=== PATIENT | female | born 1965 | race Caucasian/White ===

== ENCOUNTER 2016-09-12 09:00 | Emergency (ER) | payer MEDICAID, OTHER ==
[~2016-09-12] VITALS: Ht 160 cm; Wt 90.0 kg
[~2016-09-12 09:00] MED LIST: CITA20 PO; CYCL-36 PO; FLUP125P INJ; NAPR500 PO
[2016-09-12 09:04] VITALS: BP 159/87; PULSE 118; RESP 20; TEMP 98.2; O2SAT 98
[2016-09-12] MEDS ORDERED: DIAZEPAM 5 MG TAB PO ONE (09:15)
[2016-09-12] MEDS ORDERED: traMADol HCL 50 MG TAB PO ONE (09:15)
--- NOTE | 2016-09-12 09:23 | PD ---
HPI Chief Complaint: Musculoskeletal Complaint Time Seen by Provider: 09:09 Travel History International Travel<30 days: No Contact w/Intl Traveler<30days: No Traveled to known affect area: No History of Present Illness HPI Patient is a 51-year-old female who presents to emergency with complaints of right-sided hip and right-sided ankle pain. Patient reports that she was walking yesterday, reports that she missed a curb and tripped, reports that when she tripped, she twisted her right ankle and now has pain to her right hip as well as her right ankle. She denies any fall time injury, reports that she has been ambulating without any difficulty. Reports that she has pins and needles to her ankle, reports that she has history of low back problems in the past, which that now she feels some sciatic pain from her buttocks to her right posterior thigh. Patient denies saddle anesthesia, denies any gait instability. Patient with no incontinence of urine or bowel PFSH Past Medical History Asthma: No Autoimmune Disease: No Bipolar Disorder: Yes Anxiety: Yes Depression: Yes Cancer: Yes (SKIN CANCER REMOVED) Cardiovascular Problems: No High Cholesterol: No COPD: No Diabetes: No Diminished Hearing: No Endocrine: No Hypertension: No Immune Disorder: No Musculoskeletal: Yes Neurologic: No Psychiatric: Yes Respiratory: No Immunizations Current: Yes Schizophrenia: Yes Sleep Apnea: No Thyroid Disease: No PNEUMOCCOCAL Vaccine (Year): 2007 Menopausal: No : 4 Para: 4 Tubal Ligation: Yes (1998) Past Surgical History Abdominal Surgery: No Cardiac Surgery: No Ear Surgery: No Endocrine Surgery: No Eye Surgery: No Genitourinary Surgery: No Gynecologic Surgery: No Neurologic Surgery: No Oral Surgery: No Thoracic Surgery: No Other Surgery: Yes (hx lipoma on neck, skin cancer removed from lip) Social History Alcohol Use: Yes (twice weekly - 2 drinks) Tobacco Use: Yes (1/2 PPD) Substance Use: No Allergies-Medications (Allergen,Severity, Reaction): Coded Allergies: Risperdal (Verified Allergy, Severe, feels like on speed., 08/02/15) Haldol (Verified Allergy, Intermediate, "PAINS ALL OVER BODY", 08/02/15) Seroquel (Verified Allergy, Intermediate, "FEELS LIKE I'M GOING TO SWALLOW MY TONGUE", 08/02/15) Latuda (Verified Allergy, Unknown, 08/02/15) Reported Meds & Prescriptions Reported Meds & Active Scripts Active Flexeril (Cyclobenzaprine HCl) 10 Mg Tab 10 Mg PO TID Naprosyn (Naproxen) 500 Mg Tab 500 Mg PO BID Naprosyn (Naproxen) 500 Mg Tab 500 Mg PO Q12HR PRN Flexeril (Cyclobenzaprine HCl) 10 Mg Tab 10 Mg PO Q8HR PRN Reported Prolixin Decanoate (Fluphenazine Decanoate) 125 Mg/5 Ml Inj 125 Mg INJ MONTHLY Celexa 20 Mg Tab (Citalopram Hydrobromide) 20 Mg Tab 20 Mg PO DAILY Review of Systems General / Constitutional: No: Fever Eyes: No: Visual changes HENT: No: Headaches Cardiovascular: No: Chest Pain or Discomfort Respiratory: No: Shortness of Breath Gastrointestinal: No: Abdominal Pain Genitourinary: No: Dysuria Musculoskeletal: Positive: Pain, No: Myalgias (right ankle and right hip pain) , Arthralgias, Limited ROM Skin: No Rash Neurologic: No: Weakness Psychiatric: No: Depression Endocrine: No: Polydipsia Hematologic/Lymphatic: No: Easy Bruising Physical Exam Narrative GENERAL: NAD, Nontoxic SKIN: Focused skin assessment warm/dry. HEAD: Atraumatic. Normocephalic. NECK: Trachea midline. No JVD. CARDIOVASCULAR: Regular rate and rhythm. No murmur appreciated. RESPIRATORY: No accessory muscle use. Clear to auscultation. Breath sounds equal bilaterally. GASTROINTESTINAL: Abdomen soft, non-tender, nondistended. Hepatic and splenic margins not palpable. MUSCULOSKELETAL: No obvious deformities. No clubbing. No cyanosis. No edema. Patient with no midline cervical or thoracic or lumbar tenderness, patient with good range of motion to right hip as well as right ankle and right knee, no obvious fractures, pulses intact, neurovascular intact, patient with pain with range of motion to the right ankle and right hip. Left lower extremity: Normal exam NEUROLOGICAL: Awake and alert. No obvious cranial nerve deficits. Motor grossly within normal limits. Normal speech. PSYCHIATRIC: Appropriate mood and affect; insight and judgment normal. Data Data Last Documented VS Vital Signs Date Time Temp Pulse Resp B/P Pulse Ox O2 Delivery O2 Flow Rate FiO2 09/12/16 09:10 16 09/12/16 09:04 98.2 118 159/87 98 Orders Hip, Uni(Ap&Lat) Wo Ap Pelvis (09/12/16 ) Ankle, Complete ([id number]) (09/12/16 ) Tramadol (Ultram) (09/12/16 09:15) Diazepam (Valium) (09/12/16 09:15) MDM Medical Decision Making Medical Screen Exam Complete: Yes Emergency Medical Condition: Yes Interpretation(s) Vital Signs Date Time Temp Pulse Resp B/P Pulse Ox O2 Delivery O2 Flow Rate FiO2 09/12/16 09:10 16 09/12/16 09:04 98.2 118 20 159/87 98 Differential Diagnosis Differential includes right hip strain, right ankle strain versus fracture versus ligamentous injury Narrative Course 51-year-old female who presents to emergency room with complaints of right hip and right ankle pain after she tripped and twisted her right ankle yesterday. Patient with no trauma to the head or neck, denies loss of consciousness. She denies any fall, complains of right ankle and right hip pain. X-rays of the right ankle and right hip ordered, patient is ambulating in the emergency with normal gait. xrays reviewed - no fractures, patient will follow up with pcp and ortho and will return to ER as needed Diagnosis Primary Impression: Ankle sprain Qualified Code: S93.401A - Sprain of right ankle, unspecified ligament, initial encounter Additional Impressions: Hip pain, right Bone spur of right ankle Referrals: Fran Hedrick MD Patient Instructions: General Instructions Additional Instructions: Please follow up with orthopedic surgery as well as your primary care doctor Return to ER as needed Return to ER as needed Rest/ice and elevate your right leg. Med/Other Pt SpecificInfo: Prescription(s) given Scripts Cyclobenzaprine (Flexeril)10 Mg Tab10 Mg PO TID #10 TAB Ref 0 Prov:Lily Busby DO 09/12/16 Naproxen (Naprosyn)500 Mg [id number] Mg PO BID #30 TAB Ref 0 Prov:Lily Busby DO 09/12/16 Disposition: 01 DISCHARGE HOME Condition: Stable Lily Busby DO Sep 12, 2016 09:23
[2016-09-12] MEDS ORDERED: NAPR500 PO (09:29)
[2016-09-12] MEDS ORDERED: CYCL1TAB29 PO (09:29)
--- NOTE | 2016-09-12 09:38 | RADRPT ---
EXAM DATE/TIME: 09/12/2016 09:26 [facility] COMPARISON: No previous studies available for comparison. INDICATIONS : Ankle pain after twist and fall. MEDICAL HISTORY : None. SURGICAL HISTORY : None. ENCOUNTER: Initial ACUITY: 2 days PAIN SCORE: 8/10 LOCATION: Right ankle. FINDINGS: Three view exam was performed of the right ankle. The bony structures are in normal alignment. No e vidence of fracture, dislocation, or soft tissue swelling. The ankle mortise is intact. No radiopaq ue foreign bodies are seen. Bony mineralization is normal. CONCLUSION: Unremarkable examination of the right ankle. Prominent plantar spur. Rajesh Schultz MD on September 12, 2016 at 9:37 Board Certified Radiologist. This report was verified electronically.
--- NOTE | 2016-09-12 09:42 | RADRPT ---
EXAM DATE/TIME: 09/12/2016 09:30 [facility] COMPARISON: No previous studies available for comparison. INDICATIONS : Right buttock pain after fall. MEDICAL HISTORY : None. SURGICAL HISTORY : None. ENCOUNTER: Initial ACUITY: 2 days PAIN SCORE: 8/10 LOCATION: Right buttock FINDINGS: A two view examination of the right hip was performed. The primary and secondary trabecular pattern of the femoral neck is intact. The hip joint is of normal width without significant sclerosis or bon y hypertrophy. The acetabulum is grossly intact. CONCLUSION: Unremarkable examination of the right hip. Rajesh Schultz MD on September 12, 2016 at 9:40 Board Certified Radiologist. This report was verified electronically.
== END 2016-09-12 09:52 | disposition home or self-care (01) ==
LOC: NEPD 09:00
DX: S93.401A Sprain of unspecified ligament of right ankle, initial encounter (principal); M25.551 Pain in right hip; M77.9 Enthesopathy, unspecified; W01.0XXA Fall on same level from slipping, tripping and stumbling without subsequent striking against object, initial encounter
CPT/HCPCS: 73502; 73610; 99284

== ENCOUNTER 2016-09-24 19:39 | Emergency (ER) | payer MEDICAID ==
[~2016-09-24] VITALS: Ht 160 cm; Wt 89.0 kg
[~2016-09-24 19:39] MED LIST changes: +CYCL1TAB29 PO
[2016-09-24 19:56] VITALS: BP 136/75; PULSE 89; RESP 15; TEMP 98.6; O2SAT 100
--- NOTE | 2016-09-24 20:11 | PD ---
Physical Exam Time Seen by Provider: 20:09 Narrative 51 y/o female here with R leg pain for 2 weeks. Vital signs reviewed. Seen at triage desk. Awaiting bed placement. Data Data Last Documented VS Vital Signs Date Time Temp Pulse Resp B/P Pulse Ox O2 Delivery O2 Flow Rate FiO2 09/24/16 19:56 98.6 89 15 136/75 100 Room Air MDM Medical Record Reviewed: Yes Supervised Visit with BECCA: No Lewis Duran Sep 24, 2016 20:11
--- NOTE | 2016-09-24 21:02 | PD ---
HPI Chief Complaint: Pain: Acute or Chronic Time Seen by Provider: 20:58 Travel History International Travel<30 days: No Contact w/Intl Traveler<30days: No Traveled to known affect area: No History of Present Illness HPI Patient comes in complaining of right lower lateral back pain going down her right lower extremity ongoing for over a week. Patient denies any known trauma , loss change in bowel or bladder, fevers, no pain, chest pain, shortness breath , numbness or tingling anywhere. Patient denies anything making this better, but has tried using [id number] BenGay. Pain is worse with certain movement and walking. Patient states she is out of her Rena Lara 10 mg she was prescribed by her previous primary care provider who is no longer practicing. Patient she is requesting a refill of her Rena Lara while she is here or Percocet 10 mg as this has helped her in the past with sciatica. PFSH Past Medical History Asthma: No Autoimmune Disease: No Bipolar Disorder: Yes Anxiety: Yes Depression: Yes Cancer: Yes (SKIN CANCER REMOVED) Cardiovascular Problems: No High Cholesterol: No COPD: No Diabetes: No Diminished Hearing: No Endocrine: No Hypertension: No Immune Disorder: No Musculoskeletal: Yes Neurologic: No Psychiatric: Yes Respiratory: No Immunizations Current: Yes Schizophrenia: Yes Sleep Apnea: No Thyroid Disease: No PNEUMOCCOCAL Vaccine (Year): 2007 Menopausal: No : 4 Para: 4 Tubal Ligation: Yes (1998) Past Surgical History Abdominal Surgery: No Cardiac Surgery: No Ear Surgery: No Endocrine Surgery: No Eye Surgery: No Genitourinary Surgery: No Gynecologic Surgery: No Neurologic Surgery: No Oral Surgery: No Thoracic Surgery: No Other Surgery: Yes (hx lipoma on neck, skin cancer removed from lip) Social History Alcohol Use: Yes (twice weekly - 2 drinks) Tobacco Use: Yes (1/2 PPD) Substance Use: No Allergies-Medications (Allergen,Severity, Reaction): Coded Allergies: Risperdal (Verified Allergy, Severe, feels like on speed., 08/02/15) Sulfa (Verified Allergy, Severe, 09/24/16) PT SAYS SHE FEELS LIKE SHE WILL Haldol (Verified Allergy, Intermediate, "PAINS ALL OVER BODY", 08/02/15) Seroquel (Verified Allergy, Intermediate, "FEELS LIKE I'M GOING TO SWALLOW MY TONGUE", 08/02/15) Latmilly (Verified Allergy, Unknown, 08/02/15) Reported Meds & Prescriptions Reported Meds & Active Scripts Active Robaxin (Methocarbamol) 500 Mg Tab 500 Mg PO Q8HR PRN Percocet (Oxycodone-Acetaminophen) 10-325 mg Tab 1 Tab PO Q12HR PRN Medrol Dosepak (Methylprednisolone) 4 Mg Dspk 4 Mg PO DIRECTED Per Pharmacist direction Flexeril (Cyclobenzaprine HCl) 10 Mg Tab 10 Mg PO TID Naprosyn (Naproxen) 500 Mg Tab 500 Mg PO BID Naprosyn (Naproxen) 500 Mg Tab 500 Mg PO Q12HR PRN Flexeril (Cyclobenzaprine HCl) 10 Mg Tab 10 Mg PO Q8HR PRN Reported Prolixin Decanoate (Fluphenazine Decanoate) 125 Mg/5 Ml Inj 125 Mg INJ MONTHLY Celexa 20 Mg Tab (Citalopram Hydrobromide) 20 Mg Tab 20 Mg PO DAILY Review of Systems Except as stated in HPI: all other systems reviewed are Neg Physical Exam Narrative GENERAL: Well-developed, overly nourished, in no acute distress, and non-ill appearing. SKIN: Focused skin assessment warm and dry. HEAD: Atraumatic. Normocephalic. EYES: Pupils equal and round. EOMI. No scleral icterus. No injection or drainage. ENT: No nasal bleeding or discharge. Mucous membranes pink and moist. NECK: Trachea midline. Supple. No nuclear rigidity. CARDIOVASCULAR: Dorsal pulses 2+, tach, and equal bilaterally. Capillary refill less than 2 seconds. No pedal edema. RESPIRATORY: No accessory muscle use. No respiratory distress. GASTROINTESTINAL: Abdomen soft, non-tender, nondistended. Hepatic and splenic margins not palpable. No pulsatile mass. MUSCULOSKELETAL: No obvious deformities. No clubbing. No cyanosis. No edema. Full range of motion. No tenderness or crepitus over midline lumbar spine. Straight leg test negative bilaterally. Patient reports point tenderness right lateral lower lumbar muscles. Hip: FROM and equal BL with passive flexion, extension, Abduction, Adduction, and internal/external rotation. Pulses equal BL distal to injury. Capillary refill less than 2 seconds distal to injury and equal BL. FROM distal to injury and equal BL. Strength distal to injury equal BL. NV intact distal to injury and equal BL. Plantar flexion and dorsal flexion equal BL. Dorsal pulses equal BL. Sensation equal BL 1st web space. NEUROLOGICAL: Awake and alert. No obvious cranial nerve deficits. Motor grossly within normal limits. Normal speech. PSYCHIATRIC: Appropriate mood and affect; insight and judgment normal. Data Data Last Documented VS Vital Signs Date Time Temp Pulse Resp B/P Pulse Ox O2 Delivery O2 Flow Rate FiO2 09/24/16 19:56 98.6 89 15 136/75 100 Room Air MDM Medical Decision Making Medical Screen Exam Complete: Yes Emergency Medical Condition: Yes Differential Diagnosis Fracture, strain, sciatica, other Narrative Course The patient presented complaining of back pain with radiation down leg. There was no history of recent fall or trauma. There was no evidence to support genitourinary etiology. There is also no evidence to suggest vascular pathology such as AAA dissection. No fevers or other evidence to suspect infectious processes, abscess, osteomyelitis etc. The patients neurological exam is normal with normal motor and sensory. There is no saddle paresthesias reported and no bowel or bladder incontinence or retention. I suspect the pain is mechanical in nature with sciatica. Clinical suspicion, plan of care and management was discussed with the patient. The patient was instructed to follow up with their health care provider. The patient was also instructed to return if the pain worsened, changed, or developed weakness or bowel or bladder trouble. The patient agreed with plan, but still wanting narcotics and is asking to speak with physician. I discussed patient with Dr. Nettles, who recommends giving the patient six 10 mg Percocet along with additional prescriptions. Patient is comfortable with this and is no longer wanting to see the physician. Patient in no obvious distress upon re-evaluation. Any questions/concerns in reference to patient diagnosis/condition discussed and clarified prior to patient's discharge. Reinforced sheer importance of close follow up with patient 's primary physician or primary care clinic. Instructed patient to return to ED immediately, if symptoms return/worsen. Pt showed understanding of above instructions. Further instructions and recommendations were detailed in discharge paperwork. Pt ambulated without difficulty out of ED at discharge. Diagnosis Primary Impression: Sciatica of right side Referrals: [facility] Orthopedist Patient Instructions: General Instructions, Sciatica (ED) Additional Instructions: Follow-up with your primary care physician and/or orthopedics in 3-5 days for reevaluation. Take all medication as prescribed. Return to the emergency department if symptoms get worse. Med/Other Pt SpecificInfo: Prescription(s) given Scripts Methocarbamol (Robaxin)500 Mg Iss628 Mg PO Q8HR PRN (MUSCLE PAIN) #14 TAB Ref 0 Prov:Noman Nettles MD 09/24/16 Oxycodone-Acetaminophen (Percocet)10-325 mg Tab1 Tab PO Q12HR PRN (PAIN GREATER THAN 7) #6 TAB Ref 0 Prov:Noman Nettles MD 09/24/16 Methylprednisolone Dosepak (Medrol Dosepak)4 Mg Dspk4 Mg PO DIRECTED #1 DSPK Ref 0 Per Pharmacist direction Prov:Noman Nettles MD 09/24/16 Disposition: 01 DISCHARGE HOME Condition: Stable Benito Nath Sep 24, 2016 21:02
[2016-09-24] MEDS ORDERED: PERC10TA27 PO (21:03)
[2016-09-24] MEDS ORDERED: ROBA500T PO (21:03)
[2016-09-24] MEDS ORDERED: MEDR4PAK PO (21:03)
== END 2016-09-24 21:53 | disposition home or self-care (01) ==
LOC: NEPK 19:39
DX: M54.31 Sciatica, right side (principal)
CPT/HCPCS: 99284

== ENCOUNTER 2016-09-29 08:39 | Emergency (ER) | payer MEDICAID, OTHER ==
[~2016-09-29] VITALS: Ht 160 cm; Wt 90.0 kg
[~2016-09-29 08:39] MED LIST changes: +MEDR4PAK PO; +PERC10TA27 PO; +ROBA500T PO
[2016-09-29 09:07] VITALS: BP 107/57; PULSE 77; RESP 14; TEMP 98.1; O2SAT 97
[2016-09-29] MEDS ORDERED: SODIUM CHLOR 0.9% 1000 ML INJ 1,000 ML IV ONE (09:21)
[2016-09-29] MEDS ORDERED: SODIUM CHLORIDE 0.9% FLUSH 10 ML FLUSH IVF PRN (09:30)
[2016-09-29 09:34] VITALS: O2SAT 100
--- NOTE | 2016-09-29 09:35 | PD ---
HPI Chief Complaint: OD/ Ingestion Time Seen by Provider: 09:18 Travel History International Travel<30 days: No Contact w/Intl Traveler<30days: No Traveled to known affect area: No History of Present Illness HPI 51yo F with PMH of schizoaffective disorder was brought in under [place] Act for supposedly taking over 14 pills of lortab and eszopillone. As per the [employer] act , she told her mother that she wanted to because of having so much leg pain. Pt denies suicidal ideation. States she took 2 lortabs fro her chronic pain. Has right hip pain for 2 weeks and it sometimes radiates down right buttocks. Denies any trauma, fever, chest pain, sob, n/v, abdominal pain, focal weakness or numbness. PFSH Past Medical History Asthma: No Autoimmune Disease: No Bipolar Disorder: Yes Anxiety: Yes Depression: Yes Cancer: Yes (SKIN CANCER REMOVED) Cardiovascular Problems: No High Cholesterol: No COPD: No Diabetes: No Diminished Hearing: No Endocrine: No Hypertension: No Immune Disorder: No Musculoskeletal: Yes Neurologic: No Psychiatric: Yes Respiratory: No Immunizations Current: Yes Schizophrenia: Yes Sleep Apnea: No Thyroid Disease: No PNEUMOCCOCAL Vaccine (Year): 2007 ?: Not Menopausal: No : 4 Para: 4 Tubal Ligation: Yes (1998) Past Surgical History Abdominal Surgery: No Cardiac Surgery: No Ear Surgery: No Endocrine Surgery: No Eye Surgery: No Genitourinary Surgery: No Gynecologic Surgery: No Neurologic Surgery: No Oral Surgery: No Thoracic Surgery: No Other Surgery: Yes (hx lipoma on neck, skin cancer removed from lip) Social History Alcohol Use: No Tobacco Use: Yes Substance Use: No Allergies-Medications (Allergen,Severity, Reaction): Coded Allergies: Risperdal (Verified Allergy, Severe, feels like on speed., 08/02/15) Sulfa (Verified Allergy, Severe, 09/24/16) PT SAYS SHE FEELS LIKE SHE WILL Haldol (Verified Allergy, Intermediate, "PAINS ALL OVER BODY", 08/02/15) Seroquel (Verified Allergy, Intermediate, "FEELS LIKE I'M GOING TO SWALLOW MY TONGUE", 08/02/15) Latuda (Verified Allergy, Unknown, 08/02/15) Reported Meds & Prescriptions Reported Meds & Active Scripts Active Robaxin (Methocarbamol) 500 Mg Tab 500 Mg PO Q8HR PRN Percocet (Oxycodone-Acetaminophen) 10-325 mg Tab 1 Tab PO Q12HR PRN Reported Abilify (Aripiprazole) 10 Mg Tab 10 Mg PO DAILY Zyprexa (Olanzapine) 5 Mg Tab 5 Mg PO BID Review of Systems Except as stated in HPI: all other systems reviewed are Neg Physical Exam Narrative GENERAL: 51yo F not in distress. SKIN: Focused skin assessment warm/dry. HEAD: Atraumatic. Normocephalic. EYES: Pupils equal and round at 3mm bilaterally. EOMI. No scleral icterus. No injection or drainage. ENT: No nasal bleeding or discharge. Mucous membranes pink and moist. NECK: Trachea midline. No JVD. CARDIOVASCULAR: Regular rate and rhythm. No murmur appreciated. RESPIRATORY: No accessory muscle use. Clear to auscultation. Breath sounds equal bilaterally. GASTROINTESTINAL: Abdomen soft, non-tender, nondistended. No rebound tenderness or guarding. MUSCULOSKELETAL: RLE: +TTP right hip. Decreased right hip flexion. Sensation intact. Distal pulses intact. NEUROLOGICAL: Awake and alert. No obvious cranial nerve deficits. Motor grossly within normal limits. AAOx3. Data Data Last Documented VS Vital Signs Date Time Temp Pulse Resp B/P Pulse Ox O2 Delivery O2 Flow Rate FiO2 09/29/16 10:36 75 16 120/61 97 Room Air 09/29/16 09:07 98.1 Orders Electrocardiogram (09/29/16 09:21) Complete Blood Count With Diff (09/29/16 09:21) Comprehensive Metabolic Panel (09/29/16 09:21) Prothrombin Time / Inr (Pt) (09/29/16 09:21) Act Partial Throm Time (Ptt) (09/29/16 09:21) Urinalysis - C+S If Indicated (09/29/16 09:21) Blood Glucose (09/29/16 09:21) Iv Access Insert/Monitor (09/29/16 09:21) Ecg Monitoring (09/29/16 09:21) Oximetry (09/29/16 09:21) Sodium Chloride 0.9% Flush (Ns Flush) (09/29/16 09:30) Sodium Chlor 0.9% 1000 Ml Inj (Ns 1000 M (09/29/16 09:21) Drug Screen, Random Urine (09/29/16 09:21) Alcohol (Ethanol) (09/29/16 09:21) Salicylates (Aspirin) (09/29/16 09:21) Tylenol (Acetaminophen) (09/29/16 09:21) Psych Screen (09/29/16 09:21) Hip, Uni(Ap&Lat) W Ap Pelvis (09/29/16 ) Labs Laboratory Tests Test 09/29/16 09/29/16 09/29/16 09:42 09:56 10:03 White Blood Count 8.2 TH/MM3 Red Blood Count 4.43 MIL/MM3 Hemoglobin 9.8 GM/DL Hematocrit 31.5 % Mean Corpuscular Volume 71.1 FL Mean Corpuscular Hemoglobin 22.2 PG Mean Corpuscular Hemoglobin 31.2 % Concent Red Cell Distribution Width 19.0 % Platelet Count 274 TH/MM3 Mean Platelet Volume 7.3 FL Neutrophils (%) (Auto) 62.9 % Lymphocytes (%) (Auto) 27.9 % Monocytes (%) (Auto) 7.1 % Eosinophils (%) (Auto) 1.7 % Basophils (%) (Auto) 0.4 % Neutrophils # (Auto) 5.1 TH/MM3 Lymphocytes # (Auto) 2.3 TH/MM3 Monocytes # (Auto) 0.6 TH/MM3 Eosinophils # (Auto) 0.1 TH/MM3 Basophils # (Auto) 0.0 TH/MM3 CBC Comment DIFF FINAL Differential Comment Sodium Level 141 MEQ/L Potassium Level 4.3 MEQ/L Chloride Level 109 MEQ/L Carbon Dioxide Level 24.5 MEQ/L Anion Gap 8 MEQ/L Blood Urea Nitrogen 12 MG/DL Creatinine 0.77 MG/DL Estimat Glomerular Filtration 79 ML/MIN Rate Random Glucose 95 MG/DL Calcium Level 8.3 MG/DL Total Bilirubin 0.1 MG/DL Aspartate Amino Transf 9 U/L (AST/SGOT) Alanine Aminotransferase 21 U/L (ALT/SGPT) Alkaline Phosphatase 57 U/L Total Protein 6.5 GM/DL Albumin 3.2 GM/DL Salicylates Level 4.2 MG/DL Acetaminophen Level 5.1 MCG/ML Ethyl Alcohol Level LESS THAN 3 MG/DL Prothrombin Time 10.3 SEC Prothromb Time International 0.9 RATIO Ratio Activated Partial 28.7 SEC Thromboplast Time Urine Color LIGHT-YELLOW Urine Turbidity CLEAR Urine pH 5.0 Urine Specific Tensed 1.008 Urine Protein NEG mg/dL Urine Glucose (UA) NEG mg/dL Urine Ketones NEG mg/dL Urine Occult Blood NEG Urine Nitrite NEG Urine Bilirubin NEG Urine Urobilinogen LESS THAN 2.0 MG/DL Urine Leukocyte Esterase NEG Urine RBC LESS THAN 1 /hpf Urine Squamous Epithelial 1 /hpf Cells Urine Transitional Epithelial <1 /hpf Cells Microscopic Urinalysis Comment CULT NOT INDICATED Urine Opiates Screen NEG Urine Barbiturates Screen NEG Urine Amphetamines Screen NEG Urine Benzodiazepines Screen POS Urine Cocaine Screen NEG Urine Cannabinoids Screen NEG MDM Medical Decision Making Medical Screen Exam Complete: Yes Emergency Medical Condition: Yes Interpretation(s) EKG: NSR 77bpm. Normal axis. Narrow QRS. QTc 409ms. Differential Diagnosis Drug overdose vs. schizoaffective disorder Narrative Course 51yo F brought in under [place] Act with unknown overdose. Pt denies it and is current awake and alert. Labs reviewed, no leukocytosis. H/H low at 9.8/31.5. CMp unremarkable. Acetaminophen level low at 5.1. Salicylate 4.2. Alcohol negative. UTox showed positive benzodiazepine. UA negative. Xray right hip showed no fracture or dislocation. Hip sounds more like sciatica. Will give acetaminophen. Pt is medically clear for psych evaluation. Diagnosis Primary Impression: Overdose Qualified Code: T50.904A - Overdose, undetermined intent, initial encounter Abeba Fowler DO Sep 29, 2016 09:35
[2016-09-29 10:03] LABS: AUTOMATED NEUTROPHIL # 5.1 TH/MM3 (1.8-7.7); BASOPHIL % 0.4 % (0.0-2.0); EOSINOPHIL # 0.1 TH/MM3 (0-0.4); EOSINOPHIL % 1.7 % (0.0-4.0); HEMATOCRIT 31.5 % (35.0-46.0); HEMO FLAGS DIFF FINAL; LYMPH % 27.9 % (9.0-44.0); LYMPHOCYTE # 2.3 TH/MM3 (1.0-4.8); MEAN CELL VOLUME 71.1 FL (80.0-100.0); MEAN CORPUSCULAR HEMOGLOBIN 22.2 PG (27.0-34.0); MEAN CORPUSCULAR HGB CONC 31.2 % (32.0-36.0); MONO % 7.1 % (0.0-8.0); NEUT % 62.9 % (16.0-70.0); PLATELET COUNT 274 TH/MM3 (150-450); RED BLOOD COUNT 4.43 MIL/MM3 (4.00-5.30); WHITE BLOOD COUNT 8.2 TH/MM3 (4.0-11.0)
[2016-09-29 10:24] LABS: BLOOD, URINE NEG (NEG); GLUCOSE,URINE NEG (NEG); KETONE, URINE NEG (NEG); NITRITE,URINE NEG (NEG); SQUAMOUS EPITHELIAL CELL URINE 1 /hpf (0-5); TRANSITIONAL EPI CELLS, URINE <1 /hpf; URINE COLOR LIGHT-YELLOW (YELLW/STRAW)
[2016-09-29 10:25] LABS: COMMENT (UR) CULT NOT INDICATED; CULTURE IF INDICATED CULT NOT INDICATED
[2016-09-29 10:29] LABS: APTT (PATIENT) 28.7 SEC (24.3-30.1); INTERNATIONAL NORMALIZED RATIO 0.9 RATIO; PROTHROMBIN TIME - PATIENT 10.3 SEC (9.8-11.6)
[2016-09-29 10:35] LABS: AMPHETAMINE, URINE NEG (NEG); BARBITURATES, URINE NEG (NEG); COCAINE, URINE NEG (NEG)
[2016-09-29 10:36] VITALS: BP 120/61; PULSE 75; RESP 16; O2SAT 97
[2016-09-29] MEDS ORDERED: ZYPR5TAB PO (10:39)
[2016-09-29] MEDS ORDERED: ARIP1TAB5 PO (10:39)
[2016-09-29 10:43] LABS: ALT (GPT) 21 U/L (10-53); ANION GAP 8 MEQ/L (5-15); AST (GOT) 9 U/L (15-37); BICARBONATE 24.5 MEQ/L (21.0-32.0); BLOOD UREA NITROGEN 12 MG/DL (7-18); CHLORIDE 109 MEQ/L (98-107); GLOMERULAR FILTRATION RATE 79 ML/MIN (>89); POTASSIUM 4.3 MEQ/L (3.5-5.1); SODIUM (NA) 141 MEQ/L (136-145)
[2016-09-29 10:45] LABS: ACETAMINOPHEN 5.1 MCG/ML (10.0-30.0); ALKALINE PHOSPHATASE 57 U/L (45-117); TOTAL BILIRUBIN ADULT 0.1 MG/DL (0.2-1.0)
--- NOTE | 2016-09-29 10:49 | RADRPT ---
EXAM DATE/TIME: 09/29/2016 09:43 [facility] COMPARISON: No previous studies available for comparison. INDICATIONS : Right hip and buttock pain. Patient cannot recall injury. MEDICAL HISTORY : None. SURGICAL HISTORY : Tubal ligation. ENCOUNTER: Subsequent ACUITY: 3 days PAIN SCORE: 7/10 LOCATION: Right hip and buttock FINDINGS: There is no acute fracture or dislocation of the right hip. Mild degenerative changes are noted invo lving the lower lumbar spine and bilateral hips. CONCLUSION: 1. No acute fracture or dislocation of the right hip. 2. Mild degenerative involving the lower lumbar spine and bilateral hips. Parth Kim MD on September 29, 2016 at 10:44 Board Certified Radiologist. This report was verified electronically.
[2016-09-29] MEDS ORDERED: ACETAMINOPHEN 325 MG TAB PO ONE ×2 (11:15→20:30)
[2016-09-29 13:34] VITALS: BP 125/82; PULSE 64; RESP 16; O2SAT 100
[2016-09-29 17:50] VITALS: BP 118/61; PULSE 82; RESP 18; O2SAT 96
[2016-09-29 22:16] VITALS: BP 132/76; PULSE 69; RESP 18; O2SAT 95
--- NOTE | 2016-09-30 10:01 | EKG ---
Date Performed: 09/29/2016 Time Performed: 09:58:54 PTAGE: 51 years EKG: Sinus rhythm NORMAL ECG PREVIOUS TRACING : 04/04/2004 10.15 DOCTOR: Jai Shi Interpretating Date/Time 09/30/2016 09:59:43
--- NOTE | 2016-09-30 16:01 | PD.PSY.CON ---
Provisional Diagnosis Admission Date Counselor I. Sustained this moment disorder, history of schizoaffective disorder History of Present Illness Service Psychiatry Consult Requested By Primary Care Physician No Primary Care Physician HPI The patient is a 51-year-old woman, domicile with her mother, , on SSI, with psychiatric history of schizoaffective disorder, multiple psychiatric hospitalizations, active outpatient care, she is olanzapine 30 mg, Abilify 20 mg, no previous suicidal attempts, no significant medical history, who was brought in under [employer] for supposedly taking over 14 pills of lortab and eszopillone. As per the [employer] act, she told her mother that she wanted to because of having so much leg pain. Psychotic evaluation today patient is calm, cooperative, logical, coherent, relevant, she denies depression , denies suicidal ideation. States she took 2 lortabs fro her chronic pain. Has right hip pain for 2 weeks and it sometimes radiates down right buttocks. She is oriented 3, attention deficit, she denies the use of illicit drugs and alcohol. Review of Systems Constitutional: DENIES: Diaphoretic episodes, Fatigue, Fever, Weight gain, Weight loss, Chills, Dizziness, Change in appetite, Night Sweats Endocrine: DENIES: Abnorml menstrual pattern, Heat/cold intolerance, Polydipsia , Polyuria, Polyphagia Eyes: DENIES: Blurred vision, Diplopia, Eye inflammation, Eye pain, Vision loss , Photosensitivity, Double Vision Ears, nose, mouth, throat: DENIES: Tinnitus, Hearing loss, Vertigo, Nasal discharge, Oral lesions, Throat pain, Hoarseness, Ear Pain, Running Nose, Epistaxis, Sinus Pain, Toothache, Odynophagia Respiratory: DENIES: Apneas, Cough, Snoring, Wheezing, Hemoptysis, Sputum production, Shortness of breath Cardiovascular: DENIES: Chest pain, Palpitations, Syncope, Dyspnea on Exertion , PND, Lower Extremity Edema, Orthopnea, Claudication Gastrointestinal: DENIES: Abdominal pain, Black stools, Bloody stools, Constipation, Diarrhea, Nausea, Vomiting, Difficulty Swallowing, Anorexia Genitourinary: DENIES: Abnormal vaginal bleeding, Dysmenorrhea, Dyspareunia, Sexual dysfunction, Urinary frequency, Urinary incontinence, Urgency, Hematuria , Dysuria, Nocturia, Vaginal discharge Musculoskeletal: DENIES: Joint pain, Muscle aches, Stiffness, Joint Swelling, Back pain, Neck pain Integumentary: DENIES: Abnormal pigmentation, Pruritus, Rash, Nail changes, Breast masses, Breast skin changes, Nipple discharge Hematologic/lymphatic: DENIES: Bruising, Lymphadenopathy Immunologic/allergic: DENIES: Eczema, Urticaria Psychiatric: DENIES: Anxiety, Confusion, Mood changes, Depression, Hallucinations, Agitation, Suicidal Ideation, Homicidal Ideation, Delusions Past Family Social History Coded Allergies: Risperdal (Verified Allergy, Severe, feels like on speed., 08/02/15) Sulfa (Verified Allergy, Severe, 09/24/16) PT SAYS SHE FEELS LIKE SHE WILL Haldol (Verified Allergy, Intermediate, "PAINS ALL OVER BODY", 08/02/15) Seroquel (Verified Allergy, Intermediate, "FEELS LIKE I'M GOING TO SWALLOW MY TONGUE", 08/02/15) Latuda (Verified Allergy, Unknown, 08/02/15) Active Scripts Methocarbamol (Robaxin)500 Mg [id number] Mg PO Q8HR PRN (MUSCLE PAIN) #14 TAB Ref 0 Prov:Noman Nettles MD 09/24/16 Oxycodone-Acetaminophen (Percocet)10-325 mg Tab1 Tab PO Q12HR PRN (PAIN GREATER THAN 7) #6 TAB Ref 0 Prov:Noman Nettles MD 09/24/16 Reported Medications Aripiprazole (Abilify)10 Mg Tab10 Mg PO DAILY #30 TAB Ref 0 09/29/16 Olanzapine (Zyprexa)5 Mg Tab5 Mg PO BID #60 TAB Ref 0 09/29/16 Discontinued Scripts Methylprednisolone Dosepak (Medrol Dosepak)4 Mg Dspk4 Mg PO DIRECTED #1 DSPK Ref 0 Per Pharmacist direction Prov:Noman Nettles MD 09/24/16 Cyclobenzaprine (Flexeril)10 Mg Tab10 Mg PO TID #10 TAB Ref 0 Prov:Lily Busby DO 09/12/16 Naproxen (Naprosyn)500 Mg [id number] Mg PO BID #30 TAB Ref 0 Prov:Lily Busby DO 09/12/16 Naproxen (Naprosyn)500 Mg [id number] Mg PO Q12HR PRN (PAIN) #20 TAB Prov:Brna Izaguirre MD 08/02/15 Family History Patient denies family psychiatric history Social History Patient was born in [place], she lives in [place] with her mother, she is , unemployed, supported by [facility], her highest level of education is are some college [employer] Physical Exam Vital Signs Vital Signs Date Time Temp Pulse Resp B/P Pulse Ox O2 Delivery O2 Flow Rate FiO2 09/29/16 22:16 69 18 132/76 95 Room Air 09/29/16 09:07 98.1 Lab Results Labs Laboratory Tests Test 09/29/16 09/29/16 09/29/16 09:42 09:56 10:03 White Blood Count 8.2 TH/MM3 Red Blood Count 4.43 MIL/MM3 Hemoglobin 9.8 GM/DL Hematocrit 31.5 % Mean Corpuscular Volume 71.1 FL Mean Corpuscular Hemoglobin 22.2 PG Mean Corpuscular Hemoglobin 31.2 % Concent Red Cell Distribution Width 19.0 % Platelet Count 274 TH/MM3 Mean Platelet Volume 7.3 FL Neutrophils (%) (Auto) 62.9 % Lymphocytes (%) (Auto) 27.9 % Monocytes (%) (Auto) 7.1 % Eosinophils (%) (Auto) 1.7 % Basophils (%) (Auto) 0.4 % Neutrophils # (Auto) 5.1 TH/MM3 Lymphocytes # (Auto) 2.3 TH/MM3 Monocytes # (Auto) 0.6 TH/MM3 Eosinophils # (Auto) 0.1 TH/MM3 Basophils # (Auto) 0.0 TH/MM3 CBC Comment DIFF FINAL Differential Comment Sodium Level 141 MEQ/L Potassium Level 4.3 MEQ/L Chloride Level 109 MEQ/L Carbon Dioxide Level 24.5 MEQ/L Anion Gap 8 MEQ/L Blood Urea Nitrogen 12 MG/DL Creatinine 0.77 MG/DL Estimat Glomerular Filtration 79 ML/MIN Rate Random Glucose 95 MG/DL Calcium Level 8.3 MG/DL Total Bilirubin 0.1 MG/DL Aspartate Amino Transf 9 U/L (AST/SGOT) Alanine Aminotransferase 21 U/L (ALT/SGPT) Alkaline Phosphatase 57 U/L Total Protein 6.5 GM/DL Albumin 3.2 GM/DL Salicylates Level 4.2 MG/DL Acetaminophen Level 5.1 MCG/ML Ethyl Alcohol Level LESS THAN 3 MG/DL Prothrombin Time 10.3 SEC Prothromb Time International 0.9 RATIO Ratio Activated Partial 28.7 SEC Thromboplast Time Urine Color LIGHT-YELLOW Urine Turbidity CLEAR Urine pH 5.0 Urine Specific [place] 1.008 Urine Protein NEG mg/dL Urine Glucose (UA) NEG mg/dL Urine Ketones NEG mg/dL Urine Occult Blood NEG Urine Nitrite NEG Urine Bilirubin NEG Urine Urobilinogen LESS THAN 2.0 MG/DL Urine Leukocyte Esterase NEG Urine RBC LESS THAN 1 /hpf Urine Squamous Epithelial 1 /hpf Cells Urine Transitional Epithelial <1 /hpf Cells Microscopic Urinalysis Comment CULT NOT INDICATED Urine Opiates Screen NEG Urine Barbiturates Screen NEG Urine Amphetamines Screen NEG Urine Benzodiazepines Screen POS Urine Cocaine Screen NEG Urine Cannabinoids Screen NEG Mental Status Examination Appearance woman, age appearing, good hygiene, calm and cooperative Speech: Unremarkable Orientation: x3 Memory: Unremarkable Thought Process: Logical Hallucination Type: None Suicidal Ideation: No Previous Suicide Attempts: No Homicidal Ideation: No Previous Homicide Attempts: No Judgment: WNL Affect: Good Mood: Appropriate Motor Activity: Normal gait Assessment & Plan Problem List: (1) Schizoaffective disorder Assessment & Plan: On psychiatric evaluation today patient does not present any Acute psychiatric symptomatology that requires immediate psychiatric intervention. Patient denies depression, she denies anxiety, she denies jewell and psychosis. She denies suicidal and homicidal ideation. Recent overdose with medications seems to be secondary to maladaptive use of pain medications. She does not meet criteria for psychiatric admission at this moment. ICD Code: F25.9 Assessment & Plan Estimated LOS: Toño Mills MD Sep 30, 2016 16:00
== END 2016-09-30 09:39 | disposition home or self-care (01) ==
LOC: NEPD 08:39 → NEPJ 09-30 09:39
DX: F25.9 Schizoaffective disorder, unspecified (principal); G89.29 Other chronic pain
CPT/HCPCS: 73502; 80053; 80307; 81001; 85025; 85610; 85730; 93005; 96360; 99285; J7030

== ENCOUNTER 2016-10-10 10:43 | Emergency (ER) | payer MEDICAID, OTHER ==
[~2016-10-10 10:43] MED LIST changes: +ARIP1TAB5 PO; -CITA20 PO; -CYCL-36 PO; -CYCL1TAB29 PO; -FLUP125P INJ; -MEDR4PAK PO; -NAPR500 PO; +ZYPR5TAB PO
[2016-10-10 10:46] VITALS: BP 139/84; PULSE 101; RESP 15; TEMP 98.2; O2SAT 98
[2016-10-10] MEDS ORDERED: KETOROLAC TROMETHAMINE 60 MG/2 ML (IM) VIAL IM ONE (11:00)
[2016-10-10] MEDS ORDERED: CARISOPRODOL 350 MG TAB PO ONE (11:00)
[2016-10-10] MEDS ORDERED: SOMA250T PO (11:05)
[2016-10-10] MEDS ORDERED: NAPR500T PO (11:05)
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
== END 2016-10-10 11:57 | disposition home or self-care (01) ==
LOC: NEPD 10:43
DX: S16.1XXA Strain of muscle, fascia and tendon at neck level, initial encounter (principal); X50.0XXA Overexertion from strenuous movement or load, initial encounter; Y93.K1 Activity, walking an animal; F31.9 Bipolar disorder, unspecified
CPT/HCPCS: 96372; 99283; J1885